=== PATIENT | male | born 1995 | race Caucasian/White ===

== ENCOUNTER 2024-02-27 03:21 | Emergency (ER) | payer BC, OTHER ==
[2024-02-27 03:29] VITALS: BP 143/82; PULSE 56; RESP 18; TEMP 98; BMI 26.6
== END 2024-02-27 05:14 | disposition home or self-care (01) ==
LOC: JER 03:21
DX: R07.89 Other chest pain (principal); R20.0 Anesthesia of skin; R20.2 Paresthesia of skin; R29.898 Other symptoms and signs involving the musculoskeletal system
CPT/HCPCS: 93005; 93010; 99283-25

== ENCOUNTER 2024-07-22 00:18 | Emergency (ER) | payer BC, OTHER ==
[2024-07-22 00:22] VITALS: BP 124/82; PULSE 72; RESP 14; TEMP 98.4; BMI 26.6
== END 2024-07-22 02:31 | disposition home or self-care (01) ==
LOC: FER 00:18
DX: S66.912A Strain of unspecified muscle, fascia and tendon at wrist and hand level, left hand, initial encounter (principal); Y35.811A Legal intervention involving manhandling, law enforcement official injured, initial encounter
CPT/HCPCS: 73130-TC-LT-FY; 99283-25